=== PATIENT | female | born 1935 | race Caucasian/White ===

== ENCOUNTER 2021-12-02 12:30 | Emergency (ER) | payer MEDICARE, OTHER ==
[2021-12-02] MEDS ORDERED: Sodium Chloride 0.9% 10 ML Syringe FLUSH PRN (12:55)
[2021-12-02] MEDS ORDERED: Sodium Chloride 0.9% 1,000 ML IV SCH (13:00)
[2021-12-02 14:14] LABS: ESTIMATED GFR 71 mL/min (>60)
== END 2021-12-02 16:35 | disposition home or self-care (01) ==
LOC: JD.ED 12:30
DX: E86.0 Dehydration (principal); I48.11 Longstanding persistent atrial fibrillation; I10 Essential (primary) hypertension; Z88.2 Allergy status to sulfonamides; Z79.01 Long term (current) use of anticoagulants; Z79.899 Other long term (current) drug therapy; Z87.891 Personal history of nicotine dependence
CPT/HCPCS: 36415; 70450; 80053; 81001; 84484; 85025; 86140; 93005; 96360; 96361; 99285; J3490; J7030

== ENCOUNTER 2022-11-03 08:55 | Observation (INO) | payer MEDICARE, OTHER ==
[2022-11-03 10:10] LABS: BASOPHILS ABSOLUTE AUTO 0.04 K/mm3 (0.01-0.08); BASOPHILS PERCENT AUTO 0.6 % (0.1-1.2); EOSINOPHILS ABSOLUTE AUTO 0.05 K/mm3 (0.04-0.36); EOSINOPHILS PERCENT AUTO 0.7 (0.7-5.8); HEMATOCRIT 39.6 % (34.1-44.9); HEMOGLOBIN 12.7 gm/dl (11.2-15.7); IMMATURE GRAN ABSOLUTE AUTO 0.02 K/mm3 (0.00-0.10); IMMATURE GRAN PERCENT AUTO 0.3 % (<=1.0); LYMPHOCYTES ABSOLUTE AUTO 1.59 K/mm3 (1.18-3.74); LYMPHOCYTES PERCENT AUTO 22.3 % (19.3-51.7); MEAN CORPUSCULAR HEMOGLOBIN 29.7 pg (25.6-32.2); MEAN CORPUSCULAR HGB CONC 32.1 g/dl (32.2-35.5); MEAN CORPUSCULAR VOLUME 92.7 fl (79.4-94.8); MEAN PLATELET VOLUME 9.8 fl (9.4-12.3); MONOCYTES ABSOLUTE AUTO 0.61 K/mm3 (0.24-0.36); MONOCYTES PERCENT AUTO 8.6 % (4.7-12.5); NEUTROPHILS ABSOLUTE AUTO 4.81 K/mm3 (1.56-6.13); NEUTROPHILS PERCENT AUTO 67.5 % (34.0-71.1); PLATELET COUNT,PLT 282 K/mm3 (182-369); RED BLOOD CELL COUNT 4.27 M/mm3 (3.98-5.22); WHITE BLOOD CELL COUNT,WBC 7.12 K/mm3 (3.98-10.04)
[2022-11-03 10:48] LABS: A/G RATIO 0.9 (1-2); ALBUMIN 3.6 g/dl (3.4-5.0); ANION GAP 12.4 (5-15); BILIRUBIN TOTAL 1.1 mg/dL (0.2-1.0); CALCIUM 9.2 mg/dL (8.5-10.1); EST CRCL DRUG DOSING (CG) 33.58 mL/min; POTASSIUM,K 4.4 mEq/L (3.5-5.1); PROTEIN TOTAL,TP 7.5 g/dl (6.4-8.2)
[2022-11-03] MEDS ORDERED: hydrALAZINE 20 MG/ML SDV IVPUSH ONE (12:08)
[2022-11-03] MEDS ORDERED: amLODIPine 5 MG Tab PO ONE (12:08)
[2022-11-03] MEDS ORDERED: Ondansetron 4 MG/2 ML SDV IV PRN (14:08)
[2022-11-03] MEDS ORDERED: Docusate Sodium 100 MG Cap PO PRN (14:08)
[2022-11-03] MEDS ORDERED: Acetaminophen 325 MG Tab PO PRN (14:08)
[2022-11-03] MEDS ORDERED: hydrALAZINE 20 MG/ML SDV IVPUSH PRN (14:14)
[2022-11-03] MEDS ORDERED: Losartan 50 MG Tab PO ONE (14:30)
[2022-11-03 14:49] LABS: APPEARANCE,URINE CLEAR (Clear); BILIRUBIN,URINE NEGATIVE (Negative); COLOR,URINE YELLOW (Yellow); GLUCOSE,URINE NEGATIVE (Negative); KETONES,URINE NEGATIVE (Negative); LEUKOCYTE ESTERASE,URINE NEGATIVE (Negative); NITRITE,URINE NEGATIVE (Negative); OCCULT BLOOD,URINE NEGATIVE (Negative); PROTEIN,URINE NEGATIVE (Negative); UROBILINOGEN,URINE 0.2 (0.2-1.0)
[2022-11-03] MEDS ORDERED: Spironolactone 25 MG Tab PO ONE (14:56)
[2022-11-03] MEDS: Apixaban 5 MG Tab **PTOM PO SCH (20:36)
[2022-11-04 07:04] LABS: BASOPHILS ABSOLUTE AUTO 0.05 K/mm3 (0.01-0.08); BASOPHILS PERCENT AUTO 0.7 % (0.1-1.2); EOSINOPHILS ABSOLUTE AUTO 0.05 K/mm3 (0.04-0.36); EOSINOPHILS PERCENT AUTO 0.7 (0.7-5.8); HEMATOCRIT 41.4 % (34.1-44.9); HEMOGLOBIN 13.4 gm/dl (11.2-15.7); IMMATURE GRAN ABSOLUTE AUTO 0.02 K/mm3 (0.00-0.10); IMMATURE GRAN PERCENT AUTO 0.3 % (<=1.0); LYMPHOCYTES ABSOLUTE AUTO 1.97 K/mm3 (1.18-3.74); LYMPHOCYTES PERCENT AUTO 26.2 % (19.3-51.7); MEAN CORPUSCULAR HEMOGLOBIN 29.9 pg (25.6-32.2); MEAN CORPUSCULAR HGB CONC 32.4 g/dl (32.2-35.5); MEAN CORPUSCULAR VOLUME 92.4 fl (79.4-94.8); MEAN PLATELET VOLUME 10.5 fl (9.4-12.3); MONOCYTES PERCENT AUTO 10.6 % (4.7-12.5); NEUTROPHILS ABSOLUTE AUTO 4.64 K/mm3 (1.56-6.13); NEUTROPHILS PERCENT AUTO 61.5 % (34.0-71.1); PLATELET COUNT,PLT 305 K/mm3 (182-369); RED BLOOD CELL COUNT 4.48 M/mm3 (3.98-5.22); WHITE BLOOD CELL COUNT,WBC 7.53 K/mm3 (3.98-10.04)
[2022-11-04 07:08] LABS: ANION GAP 13.1 (5-15); CALCIUM 9.3 mg/dL (8.5-10.1); EST CRCL DRUG DOSING (CG) 33.58 mL/min; POTASSIUM,K 4.1 mEq/L (3.5-5.1)
[2022-11-04] MEDS: Apixaban 5 MG Tab **PTOM PO SCH (08:47)
[2022-11-04] MEDS ORDERED: amLODIPine 5 MG Tab **PTOM PO SCH (09:00)
[2022-11-04] MEDS ORDERED: Spironolactone 25 MG Tab PO SCH (09:00)
[2022-11-04] MEDS ORDERED: LOSARTAN 50 MG PO SCH (09:00)
== END 2022-11-04 11:45 | disposition home or self-care (01) ==
LOC: JD.ED 08:55 → JD.MS 13:41
PROVIDERS: ADMIT Internal Medicine; ATTEND Internal Medicine
DX: I16.0 Hypertensive urgency (principal); I10 Essential (primary) hypertension; I48.91 Unspecified atrial fibrillation; M19.90 Unspecified osteoarthritis, unspecified site; R77.8 Other specified abnormalities of plasma proteins; Z87.891 Personal history of nicotine dependence; Z85.038 Personal history of other malignant neoplasm of large intestine; Z79.899 Other long term (current) drug therapy; Z79.01 Long term (current) use of anticoagulants; Z88.2 Allergy status to sulfonamides; Z91.048 Other nonmedicinal substance allergy status
CPT/HCPCS: 36415; 80048; 80053; 81003; 83735; 84484; 85025; 93005; 93976; 96374; 97161; 97165; 99285; A9270; G0378; J0360

== ENCOUNTER → 2023-02-10 | Day surgery (SDC) | payer MEDICARE, OTHER ==
[~2023-02-10] MED LIST: Acetaminophen/HYDROcodone 325-5 MG Tab PO ONE; Bupivacaine 0.25% 10 ML SDV ONE; Bupivacaine 0.5% 30 ML SDV ONE; Dexamethasone 4 MG/ML 5 ML MDV ONE; HYDROmorphone 0.5 MG/0.5 ML Syringe IVPUSH PRN; Ketorolac 15 MG/ML SDV IVPUSH ONE; Lactated Ringers 1,000 ML IV SCH; Lidocaine 1% 4 ML ONE; Morphine 8 MG, EPINEPHrine 0.3 MG, Cefuroxime 750 MG, Ketorolac 30 MG, Sodium Chloride ... PRN; Ondansetron 4 MG/2 ML SDV IVPUSH ONE; Ondansetron 4 MG/2 ML SDV IVPUSH PRN; Propofol 200 MG/20 ML SDV ONE; Sodium Chloride 0.9% 10 ML Syringe FLUSH PRN; Sodium Chloride 0.9% 10 ML Syringe FLUSH SCH; Tranexamic Acid 1,000 MG/10 ML Vial ONE; Triamcinolone Acetonide 40 MG/ML 1 ML SDV ONE; Vancomycin 1 GM SDV ONE; ceFAZolin 2 GM Vial ONE; ePHEDrine 50 MG/ML SDV ONE; fentaNYL 100 MCG/2 ML SDV IVPUSH PRN; fentaNYL 100 MCG/2 ML SDV ONE
== END | disposition home or self-care (01) ==
LOC: JD.SDS 06:08
PROVIDERS: ATTEND Orthopaedic Surgery
DX: M17.0 Bilateral primary osteoarthritis of knee (principal); I48.91 Unspecified atrial fibrillation; E78.5 Hyperlipidemia, unspecified; I34.0 Nonrheumatic mitral (valve) insufficiency; I11.0 Hypertensive heart disease with heart failure; I50.9 Heart failure, unspecified; Z88.2 Allergy status to sulfonamides; Z91.048 Other nonmedicinal substance allergy status; Z79.01 Long term (current) use of anticoagulants; Z79.899 Other long term (current) drug therapy; Z87.891 Personal history of nicotine dependence
CPT/HCPCS: 0055T; 27447; 64447; 73560; 97110; 97116; 97161; A9270; C1713; C1776; J0171; J0690; J0697; J1100; J1885; J2270; J2405; J2704; J3010; J3301; J3370; J3490; J7030; J7120; 01402; 99100

== ENCOUNTER 2023-10-07 08:58 | Day surgery (SDC) | payer MEDICARE, OTHER ==
[~2023-10-07 08:58] MED LIST changes: -Acetaminophen/HYDROcodone 325-5 MG Tab PO ONE; -Bupivacaine 0.25% 10 ML SDV ONE; -Bupivacaine 0.5% 30 ML SDV ONE; -Dexamethasone 4 MG/ML 5 ML MDV ONE; -HYDROmorphone 0.5 MG/0.5 ML Syringe IVPUSH PRN; -Ketorolac 15 MG/ML SDV IVPUSH ONE; -Lactated Ringers 1,000 ML IV SCH; -Lidocaine 1% 4 ML ONE; -Morphine 8 MG, EPINEPHrine 0.3 MG, Cefuroxime 750 MG, Ketorolac 30 MG, Sodium Chloride ... PRN; -Ondansetron 4 MG/2 ML SDV IVPUSH ONE; -Ondansetron 4 MG/2 ML SDV IVPUSH PRN; -Propofol 200 MG/20 ML SDV ONE; -Tranexamic Acid 1,000 MG/10 ML Vial ONE; -Triamcinolone Acetonide 40 MG/ML 1 ML SDV ONE; -Vancomycin 1 GM SDV ONE; -ceFAZolin 2 GM Vial ONE; -ePHEDrine 50 MG/ML SDV ONE; -fentaNYL 100 MCG/2 ML SDV IVPUSH PRN; -fentaNYL 100 MCG/2 ML SDV ONE
[2023-10-07] MEDS ORDERED: fentaNYL 100 MCG/2 ML SDV ONE ×2 (09:26→09:40)
[2023-10-07] MEDS: Lactated Ringers 1,000 ML IV SCH (09:30)
[2023-10-07] MEDS ORDERED: Propofol 200 MG/20 ML SDV ONE (09:39)
[2023-10-07] MEDS ORDERED: Ketamine 200 MG/20 ML MDV ONE (09:41)
[2023-10-07] MEDS ORDERED: ceFAZolin 2 GM Vial ONE (10:30)
[2023-10-07] MEDS ORDERED: Ondansetron 4 MG/2 ML SDV ONE (10:45)
[2023-10-07] MEDS: Bupivacaine 0.5% 30 ML SDV ONE (10:54)
[2023-10-07] MEDS: EPINEPHrine 1 MG/ML SDV ONE (10:54)
== END 2023-10-07 14:45 | disposition home or self-care (01) ==
LOC: JD.SDS 08:58
PROVIDERS: ATTEND Surgery
DX: K40.90 Unilateral inguinal hernia, without obstruction or gangrene, not specified as recurrent (principal); I13.0 Hypertensive heart and chronic kidney disease with heart failure and stage 1 through stage 4 chronic kidney disease, or unspecified chronic kidney disease; E11.22 Type 2 diabetes mellitus with diabetic chronic kidney disease; N18.30 Chronic kidney disease, stage 3 unspecified; I50.9 Heart failure, unspecified; E78.5 Hyperlipidemia, unspecified; I48.91 Unspecified atrial fibrillation; Z79.01 Long term (current) use of anticoagulants; Z79.899 Other long term (current) drug therapy; Z88.2 Allergy status to sulfonamides; Z91.048 Other nonmedicinal substance allergy status
CPT/HCPCS: 49505; J0171; J0665; J2704; J3010; J7120; J0690; J2405; J3490

== ENCOUNTER 2023-11-22 07:58 | Inpatient (IN) | payer MEDICARE, OTHER ==
[2023-11-22 09:30] LABS: BASOPHILS ABSOLUTE AUTO 0.1 K/mm3 (0.0-0.2); BASOPHILS PERCENT AUTO 0.7 % (0.0-1.0); EOSINOPHILS ABSOLUTE AUTO 0.1 K/mm3 (0.0-0.4); HEMATOCRIT 40.1 % (37.0-47.0); HEMOGLOBIN 12.8 gm/dl (12.0-16.0); IMMATURE GRAN ABSOLUTE AUTO 0.05 K/mm3 (0.00-0.05); IMMATURE GRAN PERCENT AUTO 0.6 % (0.0-0.4); LYMPHOCYTES ABSOLUTE AUTO 1.2 K/mm3 (1.0-4.8); LYMPHOCYTES PERCENT AUTO 13.3 % (24.0-44.0); MEAN CORPUSCULAR HGB CONC 31.9 g/dl (32.0-36.0); MEAN CORPUSCULAR VOLUME 94.1 fl (83.0-99.0); MONOCYTES ABSOLUTE AUTO 0.5 K/mm3 (0.0-0.8); MONOCYTES PERCENT AUTO 5.9 % (0.0-8.0); NEUTROPHILS PERCENT AUTO 78.5 % (41.0-71.0); PLATELET COUNT,PLT 266 K/mm3 (150-400); RED BLOOD CELL COUNT 4.26 M/mm3 (4.10-5.30); WHITE BLOOD CELL COUNT,WBC 8.93 K/mm3 (3.9-11.3)
[2023-11-22] MEDS: Oxymetazoline 0.05% Nasal Spray 30 ML Bottle NAS ONE (09:36)
[2023-11-22] MEDS: Labetalol 100 MG/20 ML MDV IVPUSH ONE (09:37)
[2023-11-22 09:54] LABS: ALBUMIN 3.7 g/dl (3.4-5.0); ANION GAP 11.1 (5-15); BILIRUBIN TOTAL 1.4 mg/dL (0.2-1.0); CALCIUM 9.5 mg/dL (8.5-10.1); EST CRCL DRUG DOSING (CG) 32.93 mL/min; POTASSIUM,K 4.1 mEq/L (3.5-5.1); PROTEIN TOTAL,TP 7.6 g/dl (6.4-8.2)
[2023-11-22 10:19] LABS: INR 1.03; PROTHROMBIN TIME 10.9 SECONDS (9.7-12.0)
[2023-11-22 10:20] LABS: PTT,PARTIAL THROMBOPLSTIN TIME 25.6 SECONDS (21.7-31.4)
[2023-11-22] MEDS: hydrALAZINE 20 MG/ML SDV IVPUSH ONE (11:32)
[2023-11-22] MEDS ORDERED: Docusate Sodium 100 MG Cap PO PRN (15:18)
[2023-11-22] MEDS ORDERED: Polyethylene Glycol 3350 Powder 17 GM Packet PO PRN (15:18)
[2023-11-22] MEDS: hydrALAZINE 20 MG/ML SDV IVPUSH PRN (15:36)
[2023-11-22] MEDS: Losartan 50 MG Tab PO SCH (15:50)
[2023-11-22] MEDS: Hydrochlorothiazide 12.5 MG Cap PO SCH (15:50)
[2023-11-22] MEDS: Sodium Chloride 0.9% 1,000 ML IV SCH (17:08)
[2023-11-22] MEDS ORDERED: amLODIPine 5 MG Tab PO SCH (21:00)
[2023-11-22] MEDS ORDERED: Apixaban 5 MG Tab PO SCH (21:00)
[2023-11-23] MEDS: hydrALAZINE 20 MG/ML SDV IVPUSH PRN (01:13)
[2023-11-23] MEDS: Ondansetron 4 MG/2 ML SDV IV PRN (01:47)
[2023-11-23] MEDS: Acetaminophen 325 MG Tab PO PRN (01:47)
[2023-11-23 04:49] LABS: BASOPHILS ABSOLUTE AUTO 0.1 K/mm3 (0.0-0.2); BASOPHILS PERCENT AUTO 0.4 % (0.0-1.0); EOSINOPHILS PERCENT AUTO 0.2 % (0.0-6.0); HEMATOCRIT 35.6 % (37.0-47.0); HEMOGLOBIN 11.6 gm/dl (12.0-16.0); IMMATURE GRAN ABSOLUTE AUTO 0.05 K/mm3 (0.00-0.05); IMMATURE GRAN PERCENT AUTO 0.4 % (0.0-0.4); LYMPHOCYTES ABSOLUTE AUTO 1.6 K/mm3 (1.0-4.8); LYMPHOCYTES PERCENT AUTO 13.3 % (24.0-44.0); MEAN CORPUSCULAR HEMOGLOBIN 30.1 pg (28.0-32.0); MEAN CORPUSCULAR HGB CONC 32.6 g/dl (32.0-36.0); MEAN CORPUSCULAR VOLUME 92.5 fl (83.0-99.0); MEAN PLATELET VOLUME 10.5 fl (9.4-12.3); MONOCYTES ABSOLUTE AUTO 0.8 K/mm3 (0.0-0.8); MONOCYTES PERCENT AUTO 6.3 % (0.0-8.0); NEUTROPHILS ABSOLUTE AUTO 9.8 K/mm3 (1.8-7.7); NEUTROPHILS PERCENT AUTO 79.4 % (41.0-71.0); PLATELET COUNT,PLT 262 K/mm3 (150-400); RED BLOOD CELL COUNT 3.85 M/mm3 (4.10-5.30)
[2023-11-23 05:22] LABS: ALBUMIN 3.4 g/dl (3.4-5.0); ANION GAP 13.4 (5-15); BILIRUBIN TOTAL 1.4 mg/dL (0.2-1.0); EST CRCL DRUG DOSING (CG) 32.93 mL/min; POTASSIUM,K 3.4 mEq/L (3.5-5.1); PROTEIN TOTAL,TP 6.8 g/dl (6.4-8.2)
[2023-11-23] MEDS: Potassium Chloride 20 MEQ Tab.ER PO ONE (11:10)
[2023-11-23] MEDS ORDERED: Acetaminophen 325 MG Tab PO PRN (14:53)
[2023-11-23] MEDS: amLODIPine 5 MG Tab PO SCH (20:37)
[2023-11-24 04:54] LABS: BASOPHILS PERCENT AUTO 0.2 % (0.0-1.0); EOSINOPHILS ABSOLUTE AUTO 0.1 K/mm3 (0.0-0.4); EOSINOPHILS PERCENT AUTO 0.5 % (0.0-6.0); HEMATOCRIT 35.2 % (37.0-47.0); HEMOGLOBIN 11.3 gm/dl (12.0-16.0); IMMATURE GRAN ABSOLUTE AUTO 0.06 K/mm3 (0.00-0.05); IMMATURE GRAN PERCENT AUTO 0.5 % (0.0-0.4); LYMPHOCYTES ABSOLUTE AUTO 1.9 K/mm3 (1.0-4.8); LYMPHOCYTES PERCENT AUTO 14.4 % (24.0-44.0); MEAN CORPUSCULAR HEMOGLOBIN 30.2 pg (28.0-32.0); MEAN CORPUSCULAR HGB CONC 32.1 g/dl (32.0-36.0); MEAN CORPUSCULAR VOLUME 94.1 fl (83.0-99.0); MEAN PLATELET VOLUME 10.5 fl (9.4-12.3); MONOCYTES ABSOLUTE AUTO 1.2 K/mm3 (0.0-0.8); MONOCYTES PERCENT AUTO 8.9 % (0.0-8.0); NEUTROPHILS PERCENT AUTO 75.5 % (41.0-71.0); PLATELET COUNT,PLT 250 K/mm3 (150-400); RED BLOOD CELL COUNT 3.74 M/mm3 (4.10-5.30); WHITE BLOOD CELL COUNT,WBC 13.21 K/mm3 (3.9-11.3)
[2023-11-24 05:25] LABS: A/G RATIO 0.9 (1-2); ALBUMIN 3.1 g/dl (3.4-5.0); BILIRUBIN TOTAL 1.2 mg/dL (0.2-1.0); BUN/CREATININE RATIO 25.6 (14-18); CALCIUM 9.1 mg/dL (8.5-10.1); CREATININE 0.9 mg/dL (0.55-1.02); EST CRCL DRUG DOSING (CG) 36.59 mL/min; MAGNESIUM 1.8 mg/dL (1.8-2.4); PROTEIN TOTAL,TP 6.6 g/dl (6.4-8.2)
[2023-11-24] MEDS: Apixaban 5 MG Tab PO SCH (10:58)
== END 2023-11-24 17:10 | disposition home or self-care (01) | DRG 151 ==
LOC: JD.ED 07:58 → JD.MS 13:24 → INTOOBSV 13:24 → OBSVTOIN 11-23 10:10
PROVIDERS: ADMIT Family Medicine; ATTEND Family Medicine
PROC: 093K7ZZ Control Bleeding in Nasal Mucosa and Soft Tissue, Via Natural or Artificial Opening (ICD-10-PCS; principal; 2023-11-22)
DX: R04.0 Epistaxis (principal); I16.1 Hypertensive emergency; I10 Essential (primary) hypertension; I13.0 Hypertensive heart and chronic kidney disease with heart failure and stage 1 through stage 4 chronic kidney disease, or unspecified chronic kidney disease; I16.0 Hypertensive urgency; I48.91 Unspecified atrial fibrillation; Z66 Do not resuscitate; M19.90 Unspecified osteoarthritis, unspecified site; Z91.048 Other nonmedicinal substance allergy status; H91.90 Unspecified hearing loss, unspecified ear; N18.31 Chronic kidney disease, stage 3a; R55 Syncope and collapse; Z88.2 Allergy status to sulfonamides; Z88.8 Allergy status to other drugs, medicaments and biological substances; Z79.01 Long term (current) use of anticoagulants; Z85.038 Personal history of other malignant neoplasm of large intestine; Z86.16 Personal history of COVID-19; Z98.49 Cataract extraction status, unspecified eye; Z96.649 Presence of unspecified artificial hip joint; Z79.899 Other long term (current) drug therapy; Z98.890 Other specified postprocedural states; Z87.891 Personal history of nicotine dependence
CPT/HCPCS: 30903; 36415 ×2; 76775; 80053 ×2; 83735; 84484; 85025 ×2; 85610; 85730; 87641; 93005 ×2; 93976; 96361; 96374; 96375; 99285; A9270 ×4; J0360 ×2; J1921; J2405; J7030; 93306; 96376; 97161-GP; G0378